=== PATIENT | male | born 1980 | race Caucasian/White ===

== ENCOUNTER 2017-05-20 03:35 | Emergency (ER) | payer BC ==
[2017-05-20] MEDS ORDERED: Acetaminophen 500 MG Tab PO ONE (03:46)
[2017-05-20] MEDS ORDERED: Sodium Chloride 0.9% 10 ML Syringe FLUSH PRN (03:46)
[2017-05-20] MEDS ORDERED: Sodium Chloride 0.9% 1,000 ML IV ONE ×2 (03:46→05:08)
[2017-05-20] MEDS ORDERED: Ketorolac 30 MG/ML SDV IVPUSH ONE (03:46)
[2017-05-20 04:42] LABS: CHLORIDE,CL 101 mmol/L (98-107); SODIUM,NA 136 mmol/L (136-145)
[2017-05-20] MEDS ORDERED: cefTRIAXone 2 GM Vial IVPUSH ONE (05:10)
[2017-05-20] MEDS ORDERED: cefTRIAXone 1 GM in Sodium Chloride 0.9% 100 ML IV ONE (05:13)
--- NOTE | 2017-05-20 05:19 | EDM.PDOC ---
ED HPI GENERAL MEDICAL PROBLEM - General Chief Complaint: Fever Stated Complaint: sore throat, fever, coughing blood Time Seen by Provider: 05/20/17 04:04 Source of Information: Reports: Patient, Family History Limitations: Reports: No Limitations - History of Present Illness INITIAL COMMENTS - FREE TEXT/NARRATIVE: Patient complains of cough (dry), fever, and not feeling well. Had significant amount of rhinorrhea noted over the last few days. Within the last 24 hours he has developed sore throat and cough. Has not taken anything for the fever such as Tylenol. Noted small amounts of blood being coughed up. Is a smoker. Has undergone two rounds of antibiotics over the last three weeks, Amox and Cefdinir, for treatment of "sinus infection". He feels the antibiotics were not helpful. He denies any GI complaints. Reports his ears feel "full". Was hospitalized in past for influenza. Has elevated BP by history but has not started any medication for it. Bilateral Ear Pain Score (Numeric/FACES): 8 - Related Data Allergies Allergy/AdvReac Type Severity Reaction Status Date / Time No Known Drug Allergies Allergy Cannot Verified 05/20/17 03:37 Remember Home Meds: Home Meds Albuterol Sulfate [Proair Hfa] 1 - 2 inh INH Q4H PRN 05/20/17 [History] Past Medical History HEENT History: Reports: Impaired Vision Other HEENT History: tonsillitis Cardiovascular History: Reports: High Cholesterol, Hypertension Other Cardiovascular History: Does not take any BP medications Respiratory History: Reports: Other (See Below) Other Respiratory History: everyday smoker Gastrointestinal History: Reports: Hemorrhoids Musculoskeletal History: Reports: Back Pain, Chronic Neurological History: Reports: Concussion Psychiatric History: Reports: Anxiety Endocrine/Metabolic History: Reports: Obesity/BMI 30+ - Infectious Disease History Infectious Disease History: Reports: Chicken Pox - Past Surgical History Other HEENT Surgeries/Procedures: wisdom teeth removal x 3. Endocrine Surgical History: Reports: None Neurological Surgical History: Reports: None Social & Family History - Tobacco Use Smoking Status *Q: Current Every Day Smoker Years of Tobacco use: 20 Packs/Tins Daily: 0.5 - Caffeine Use Caffeine Use: Reports: Energy Drinks - Recreational Drug Use Recreational Drug Use: No ED ROS GENERAL - Review of Systems Review Of Systems: See Below Constitutional: Reports: Fever, Chills, Malaise, Fatigue, Decreased Appetite. Denies: Diaphoresis, Weight Loss, Weight Gain HEENT: Reports: Ear Pain (some ear pressure bilaterally), Rhinitis, Sinus Problem, Throat Pain. Denies: Ear Discharge, Eye Discharge, Eye Pain, Throat Swelling, Vertigo, Vision Change, Other Respiratory: Reports: Cough, Hemoptysis. Denies: Shortness of Breath, Wheezing , Pleuritic Chest Pain, Sputum Cardiovascular: Reports: No Symptoms. Denies: Chest Pain GI/Abdominal: Reports: No Symptoms. Denies: Abdominal Pain, Hematochezia, Nausea, Vomiting : Reports: No Symptoms Musculoskeletal: Reports: No Symptoms (no acute changes) Skin: Reports: No Symptoms Neurological: Reports: No Symptoms Psychiatric: Reports: No Symptoms Hematologic/Lymphatic: Reports: No Symptoms ED EXAM, GENERAL - Physical Exam Exam: See Below Exam Limited By: No Limitations General Appearance: Alert, WD/WN, No Apparent Distress (Curled up onto his side on bed, has blanket. ) Eye Exam: Bilateral Eye: EOMI, PERRL Ears: Normal External Exam, Normal Canal, Hearing Grossly Normal, Normal TMs Nose: Normal Inspection Throat/Mouth: Normal Lips, Normal Voice, No Airway Compromise, Other (Patient has larger tonsils, no exudate but several smaller white areas that appear to be consistent with tonsil stones noted. No increased erythema noted. ) Head: Atraumatic, Normocephalic Neck: Normal Inspection, Supple, Non-Tender, Full Range of Motion. No: Lymphadenopathy (L), Lymphadenopathy (R) Respiratory/Chest: No Respiratory Distress, Lungs Clear, Normal Breath Sounds, No Accessory Muscle Use, Chest Non-Tender Cardiovascular: Normal Peripheral Pulses, Regular Rate, Rhythm, No Edema, No Murmur Peripheral Pulses: 2+: Radial (L), Radial (R), Dorsalis Pedis (L), Dorsalis Pedis (R) GI/Abdominal: Normal Bowel Sounds, Soft, Non-Tender, No Distention, No Mass (Male) Exam: Deferred Rectal (Males) Exam: Deferred Back Exam: Normal Inspection Extremities: Normal Inspection, Normal Range of Motion, Non-Tender, No Pedal Edema, Normal Capillary Refill Neurological: Alert, Oriented, Normal Cognition, Normal Gait, No Motor/Sensory Deficits Psychiatric: Normal Affect, Normal Mood Skin Exam: Warm, Dry, Intact, Normal Color, No Rash Course - Vital Signs Last Recorded V/S: Last Vital Signs Temp 38.4 C H 05/20/17 05:29 Pulse 102 H 05/20/17 06:45 Resp 21 H 05/20/17 03:40 BP 132/62 05/20/17 06:45 Pulse Ox 99 05/20/17 06:45 - Orders/Labs/Meds Orders: Active Orders 24 hr Category Date Time Status Chest 2V [CR] Stat Exams 05/20/17 03:47 Taken CULTURE STREP A CONFIRMATION [RM] Stat Lab 05/20/17 03:57 Results STREP SCRN A RAPID W CULT CONF [RM] Stat Lab 05/20/17 03:57 Results Saline Lock Insert [OM.PC] Routine Oth 05/20/17 03:46 Ordered Labs: Laboratory Tests 05/20/17 05/20/17 05/20/17 Range/Units 03:57 04:15 04:15 WBC 18.6 H (4.0-10.2) K/uL RBC 5.24 (4.33-5.41) M/uL Hgb 16.2 (13.1-16.8) g/dL Hct 46.5 (39.0-49.0) % MCV 88.7 (84.0-98.0) fL MCH 30.9 (28.2-33.3) pg MCHC 34.8 (31.7-36.0) g/dL RDW 13.4 (11.2-14.1) % Plt Count 226 (150-350) K/uL Neut % (Auto) 81.1 H (45.0-80.0) % Lymph % (Auto) 12.6 (10.0-50.0) % [place] % (Auto) 5.5 (2.0-14.0) % Eos % (Auto) 0.5 (0.0-5.0) % Baso % (Auto) 0.3 (0.0-2.0) % Neut # (Auto) 15.08 H (1.40-7.00) K/uL Lymph # (Auto) 2.35 (0.50-3.50) K/uL Rice # (Auto) 1.02 H (0.00-1.00) K/uL Eos # (Auto) 0.09 (0.00-0.50) K/uL Baso # (Auto) 0.05 (0.00-0.20) K/uL Sodium 136 (136-145) mmol/L Potassium 3.7 (3.5-5.1) mmol/L Chloride 101 (98-107) mmol/L Carbon Dioxide 23.1 (21.0-32.0) mmol/L BUN 10 (7-18) mg/dL Creatinine 0.74 (0.51-1.17) mg/dL Est Cr Clr Drug Dosing 151.47 mL/min Estimated GFR (MDRD) > 60 mL/min Glucose 105 (74-106) mg/dL Calcium 9.0 (8.5-10.1) mg/dL Total Bilirubin 0.6 (0.2-1.0) mg/dL AST 24 (15-37) U/L ALT 64 (12-78) U/L Alkaline Phosphatase 144 H (46-116) IU/L Total Protein 8.5 H (6.4-8.2) g/dL Albumin 4.2 (3.4-5.0) g/dL Specimen Type Urincc Urine Color Yellow Urine Appearance Clear Urine pH 7.5 (5.0-9.0) Ur Specific [place] 1.020 (1.005-1.030) Urine Protein 30 H (NEGATIVE) mg/dL Urine Glucose (UA) Negative (NEGATIVE) mg/dL Urine Ketones 15 H (NEGATIVE) mg/dL Urine Occult Blood Trace-intact H (NEGATIVE) Urine Nitrite Negative (NEGATIVE) Urine Bilirubin Negative (NEGATIVE) Urine Urobilinogen 0.2 (0.2-1.0) E.U./dL Ur Leukocyte Esterase Negative (NEGATIVE) Urine RBC 0-5 /HPF Urine WBC 0-5 /HPF Ur Epithelial Cells Few /LPF Urine Bacteria Occasional (NONE TO FEW) /HPF Meds: Medications Discontinued Medications Generic Name Dose Route Start Last Admin Trade Name Freq PRN Reason Stop Dose Admin Acetaminophen 1,000 mg 05/20/17 03:46 05/20/17 04:01 Tylenol Extra Strength PO 05/20/17 03:47 1,000 mg ONETIME ONE Administration Ceftriaxone Sodium 1 gm 05/20/17 05:10 05/20/17 05:49 Rocephin IVPUSH 05/20/17 05:11 Not Given ONETIME ONE Sodium Chloride 1,000 mls @ 999 mls/hr 05/20/17 03:46 05/20/17 04:17 Normal Saline IV 05/20/17 04:46 999 mls/hr .BOLUS ONE Administration Sodium Chloride 1,000 mls @ 999 mls/hr 05/20/17 05:08 05/20/17 05:18 Normal Saline IV 05/20/17 06:08 999 mls/hr .BOLUS ONE Administration Ceftriaxone Sodium 1 gm/ 100 mls @ 200 mls/hr 05/20/17 05:13 05/20/17 05:24 Sodium Chloride IV 05/20/17 05:42 200 mls/hr ONETIME ONE Administration Ketorolac Tromethamine 30 mg 05/20/17 03:46 05/20/17 04:17 Toradol IVPUSH 05/20/17 03:47 30 mg ONETIME ONE Administration Sodium Chloride 10 ml 05/20/17 03:46 Saline Flush FLUSH ASDIRECTED PRN Keep Vein Open - Radiology Interpretation Free Text/Narrative:: Chest xray overall clear. Mild change noted left lower lung that could represent atelectasis/fibrosis vs early infiltrate. - Re-Assessments/Exams Free Text/Narrative Re-Assessment/Exam: Some ketones in UA noted. WBC elevated. Rapid strep and influenza negative. Tylenol given for fever. Patient will be placed on antibiotics given the elevated WBC/left shift and smoking history. Patient made aware that given the sore throat and ear complaint /illness pattern that this could very likely be caused by viral illness. IV fluid bolus given as well as Toradol. Patient appeared more comfortable. BP improved. Will be discharged home and is to follow up Sunday with primary clinic if further work restrictions needed. 05/20/17 05:36 Feeling much improved. Fever also improved. Additional 1 liter of NS ordered. Discussed with patient that he will need follow up with lung specialist if he continues to cough up small amounts of blood and that he should continue to monitor for additional episodes and follow up with primary provider. Departure - Departure Time of Disposition: 06:30 Disposition: Home, Self-Care 01 Condition: Good Clinical Impression: Respiratory tract infection, Dehydration, mild Fever Qualifiers: Fever type: unspecified Qualified Code(s): R50.9 - Fever, unspecified - Discharge Information Instructions: Azithromycin tablets, Ketorolac tablets Referrals: PCP,None [Primary Care Provider] - Forms: ED Department Discharge, ED Return to Work/School Form Additional Instructions: Home, rest, drink plenty of water. Take Tylenol for pain/fever. You may also use the Toradol we gave you for pain, 1 tab every 6 hours as needed. Do not take any ibuprofen/motrin/aleve while using the Toradol. Take Zpack as directed. Call your primary clinic Sunday morning and arrange follow up appointment to be rechecked on Sunday. Work restrictions as needed and [employer] forms can be complete at that time. Observe your cough. Coughing up small amount of blood is usually self-limited and goes away once the infection resolves. If you continue to cough up blood however then you will need referral to a lung specialist for further workup. Follow up otherwise as needed if you have problems. - My Orders Last 24 Hours: My Active Orders 05/20/17 03:46 Saline Lock Insert [OM.PC] Routine 05/20/17 03:47 Chest 2V [CR] Stat 05/20/17 03:57 CULTURE STREP A CONFIRMATION [RM] Stat STREP SCRN A RAPID W CULT CONF [RM] Stat - Assessment/Plan Last 24 Hours: My Active Orders 05/20/17 03:46 Saline Lock Insert [OM.PC] Routine 05/20/17 03:47 Chest 2V [CR] Stat 05/20/17 03:57 CULTURE STREP A CONFIRMATION [RM] Stat STREP SCRN A RAPID W CULT CONF [RM] Stat
[2017-05-20 07:01] VITALS: BP 132/62
== END 2017-05-20 06:52 | disposition home or self-care (01) ==
LOC: LL.ED 03:35
DX: J98.8 Other specified respiratory disorders (principal); E86.0 Dehydration; F17.210 Nicotine dependence, cigarettes, uncomplicated
CPT/HCPCS: 36415; 71020; 80053; 81001; 85025; 87081; 87430; 87804; 96361; 96365; 96375; 99284; A9270; J0696; J1885; J7030; J7050